=== PATIENT | male | born 1955 | race Caucasian/White ===

== ENCOUNTER → 2017-05-30 | Outpatient (CLI) | payer OTHER ==
[2017-05-30 12:11] LABS: BASOPHILS % (AUTO) 0.6 % (0.0-5.0); EOSINOPHILS % (AUTO) 1.1 % (0.0-8.0); HEMATOCRIT 50.2 % (42-54); LYMPHOCYTES % (AUTO) 24.6 % (21.0-51.0); MEAN CORPUSCULAR HEMOGLOBIN 30.8 pg (27.0-33.0); MEAN CORPUSCULAR HGB CONC 34.6 g/dL (32.0-36.0); MONOCYTES % (AUTO) 7.4 % (3.0-13.0); NEUTROPHILS % (AUTO) 66.3 % (40.0-77.0); NUCLEATED RED BLOOD CELLS 0.1 % (0.0-0.19); PLATELET COUNT (AUTO) 194 K/uL (130-400); RED BLOOD CELL COUNT(AUTO) 5.64 MIL/uL (4.50-6.20); RED CELL DISTRIBUTION WIDTH 14.1 % (11.0-15.5); WHITE BLOOD COUNT (AUTO) 11.6 K/uL (4.8-10.8)
[2017-05-30 12:31] LABS: ALBUMIN 4.2 g/dL (3.5-5.0); BILIRUBIN,TOTAL 0.8 mg/dL (0.2-1.0); CREATININE 0.9 mg/dL (0.5-1.5); TOTAL PROTEIN, SERUM 5.8 g/dL (6.0-8.3)
== END | disposition home or self-care (01) ==
LOC: LAB 10:00
PROVIDERS: ATTEND Internal Medicine
DX: I12.9 Hypertensive chronic kidney disease with stage 1 through stage 4 chronic kidney disease, or unspecified chronic kidney disease (principal); N18.2 Chronic kidney disease, stage 2 (mild); E78.2 Mixed hyperlipidemia
CPT/HCPCS: 36415; 80053; 80061; 85025

== ENCOUNTER → 2017-07-27 | Outpatient (CLI) | payer OTHER | END | disposition home or self-care (01) | LOC: LAB 08:52 | PROVIDERS: ATTEND Internal Medicine | DX: Z12.11 Encounter for screening for malignant neoplasm of colon (principal); I12.9 Hypertensive chronic kidney disease with stage 1 through stage 4 chronic kidney disease, or unspecified chronic kidney disease; N18.2 Chronic kidney disease, stage 2 (mild) | CPT/HCPCS: 36415; 82043; 86787 ==

== ENCOUNTER → 2017-10-26 | Outpatient (CLI) | payer OTHER ==
[~2017-10-26] MED LIST: ASPI-555 PO; CIALIS PO; CLOP75TA14 PO; FINA1TAB13 PO; HYDR25TA PO; LEVO500T2 PO; LOSA100T20 PO; METO25 PO; NICODERM PATCH TD; ROSU40TA20 PO; TRAM50TA4 PO
== END | disposition home or self-care (01) ==
LOC: OIH 10:00
PROVIDERS: ATTEND Internal Medicine
DX: Z13.6 Encounter for screening for cardiovascular disorders (principal); J84.10 Pulmonary fibrosis, unspecified; K44.9 Diaphragmatic hernia without obstruction or gangrene
CPT/HCPCS: 75571

== ENCOUNTER → 2017-11-29 | Outpatient (CLI) | payer OTHER ==
[~2017-11-29] MED LIST changes: -LEVO500T2 PO; -METO25 PO; -TRAM50TA4 PO
[2017-11-29 09:10] LABS: BASOPHILS % (AUTO) 0.6 % (0.0-5.0); EOSINOPHILS % (AUTO) 2.1 % (0.0-8.0); HEMATOCRIT 47.8 % (42-54); LYMPHOCYTES % (AUTO) 27.4 % (21.0-51.0); MEAN CORPUSCULAR HGB CONC 33.6 g/dL (32.0-36.0); MEAN CORPUSCULAR VOLUME 92.2 fL (79-99); MONOCYTES % (AUTO) 8.1 % (3.0-13.0); NEUTROPHILS % (AUTO) 61.8 % (40.0-77.0); NUCLEATED RED BLOOD CELLS 0.1 % (0.0-0.19); PLATELET COUNT (AUTO) 142 K/uL (130-400); RED BLOOD CELL COUNT(AUTO) 5.18 MIL/uL (4.50-6.20); WHITE BLOOD COUNT (AUTO) 9.4 K/uL (4.8-10.8)
[2017-11-29 09:22] LABS: BILIRUBIN,TOTAL 0.5 mg/dL (0.2-1.0); CREATININE 0.8 mg/dL (0.5-1.5); POTASSIUM 3.9 mmol/L (3.5-5.1); TOTAL PROTEIN, SERUM 7.3 g/dL (6.0-8.3)
== END | disposition home or self-care (01) ==
LOC: LAB 08:29
PROVIDERS: ATTEND Internal Medicine
DX: I12.9 Hypertensive chronic kidney disease with stage 1 through stage 4 chronic kidney disease, or unspecified chronic kidney disease (principal); N18.2 Chronic kidney disease, stage 2 (mild); E78.2 Mixed hyperlipidemia; N40.0 Benign prostatic hyperplasia without lower urinary tract symptoms
CPT/HCPCS: 36415; 80053; 80061; 84153; 85025

== ENCOUNTER 2017-12-07 05:53 | Day surgery (SDC) | payer OTHER ==
[2017-12-02 14:13] VITALS: BP 149/74
[2017-12-02 14:13] LABS: BASOPHILS % (AUTO) 0.9 % (0.0-5.0); EOSINOPHILS % (AUTO) 3.1 % (0.0-8.0); HEMATOCRIT 46.7 % (42-54); LYMPHOCYTES % (AUTO) 35.5 % (21.0-51.0); MEAN CORPUSCULAR HEMOGLOBIN 30.6 pg (27.0-33.0); MEAN CORPUSCULAR HGB CONC 33.3 g/dL (32.0-36.0); MEAN CORPUSCULAR VOLUME 91.8 fL (79-99); MONOCYTES % (AUTO) 8.8 % (3.0-13.0); NEUTROPHILS % (AUTO) 51.7 % (40.0-77.0); NUCLEATED RED BLOOD CELLS 0.1 % (0.0-0.19); PLATELET COUNT (AUTO) 147 K/uL (130-400); RED BLOOD CELL COUNT(AUTO) 5.09 MIL/uL (4.50-6.20); RED CELL DISTRIBUTION WIDTH 12.8 % (11.0-15.5)
[2017-12-02 14:16] LABS: CREATININE 0.9 mg/dL (0.5-1.5); POTASSIUM 3.5 mmol/L (3.5-5.1)
[2017-12-02 14:18] LABS: APPEARANCE,URINE Clear (CLEAR); BILIRUBIN,URINE Negative (NEGATIVE); COLOR,URINE Yellow (YELLOW); GLUCOSE, URINE (UA) Negative (NEGATIVE); KETONES,URINE Negative (NEGATIVE); LEUKOCYTE ESTERASE ,URINE Negative (NEGATIVE); NITRATE,URINE Negative (NEGATIVE); OCCULT BLOOD,URINE Small (NEGATIVE); PROTEIN,URINE Negative (NEGATIVE)
[2017-12-02 14:25] LABS: INR 0.99 (0.85-1.15); PARTIAL THROMBOPLASTIN TIME 29.6 SEC (26.3-35.5); PROTHROMBIN TIME 10.4 SEC (9.6-11.6)
[2017-12-02 14:50] LABS: BACTERIA,URINE Few /HPF (None Seen); SQUAMOUS EPITHELIAL CELL,UR None Seen /HPF (0-2); WBC,URINE 0-1 /HPF (0-1)
[~2017-12-07] VITALS: Ht 174 cm; Wt 85.3 kg
[2017-12-07] VITALS (9 sets, daily range): BP systolic 134–151; BP diastolic 66–81
[~2017-12-07 05:53] MED LIST changes: -NICODERM PATCH TD
[2017-12-07] MEDS ORDERED: NICODERM PATCH TD (07:07)
[2017-12-07] MEDS ORDERED: NITROGLYCERIN 5 MG/ML 10 ML VIAL IV ONE (07:13)
[2017-12-07] MEDS ORDERED: LIDOCAINE HCL-MPF 2% 5ML VIAL ONE ×2 (07:13→07:45)
[2017-12-07] MEDS ORDERED: IOHEXOL 350 MG/ML 100ML INFUS..BTL IV ONE ×2 (07:13→07:53)
[2017-12-07] MEDS ORDERED: IOHEXOL-350 50ML VIAL IV ONE (07:13)
[2017-12-07] MEDS ORDERED: BIVALIRUDIN 250 MG/VIAL IV ONE (07:53)
[2017-12-07] MEDS ORDERED: SODIUM CHLORIDE 0.9% 1000ML 1,000 ML IV SCH ×2 (08:00→08:31)
[2017-12-07] MEDS ORDERED: LABETALOL HCL 5 MG/ML 20ML VIAL IV ONE (08:21)
[2017-12-07] MEDS ORDERED: GLUCAGON 1MG KIT 1 MG ML IM PRN (08:45)
[2017-12-07] MEDS ORDERED: NITROGLYCERIN 0.4 MG SL TAB SL PRN (08:45)
[2017-12-07] MEDS ORDERED: DEXTROSE 50%-WATER 50 ML DISP.SYRIN IV PRN (08:45)
== END 2017-12-07 13:07 | disposition home or self-care (01) ==
LOC: DAH 05:53
PROVIDERS: ATTEND Internal Medicine Cardiovascular Disease
DX: I25.118 Atherosclerotic heart disease of native coronary artery with other forms of angina pectoris (principal); I13.0 Hypertensive heart and chronic kidney disease with heart failure and stage 1 through stage 4 chronic kidney disease, or unspecified chronic kidney disease; N18.2 Chronic kidney disease, stage 2 (mild); I50.9 Heart failure, unspecified; E78.5 Hyperlipidemia, unspecified; F15.90 Other stimulant use, unspecified, uncomplicated; F17.210 Nicotine dependence, cigarettes, uncomplicated; Z79.82 Long term (current) use of aspirin; Z79.899 Other long term (current) drug therapy; Z86.73 Personal history of transient ischemic attack (TIA), and cerebral infarction without residual deficits; Z72.89 Other problems related to lifestyle; Z82.49 Family history of ischemic heart disease and other diseases of the circulatory system
CPT/HCPCS: 36415; 71045; 80048; 81001; 85025; 85610; 85730; 93005; 93458; A4606; C1894 ×2; J1644; J3490 ×4; J7030; Q9965 ×2; Q9967 ×3; 36215; 75710; J0583

== ENCOUNTER 2017-12-15 13:00 | Inpatient (IN) | payer OTHER ==
[~2017-12-15] VITALS: Ht 167.6 cm; Wt 84.5 kg
[2017-12-15 12:56] VITALS: BP 159/81
[~2017-12-15 13:00] MED LIST changes: +NICODERM PATCH TD
[2017-12-15 13:03] LABS: BASOPHILS % (AUTO) 1.3 % (0.0-5.0); EOSINOPHILS % (AUTO) 2.7 % (0.0-8.0); HEMATOCRIT 43.8 % (42-54); LYMPHOCYTES % (AUTO) 31.1 % (21.0-51.0); MEAN CORPUSCULAR HEMOGLOBIN 32.1 pg (27.0-33.0); MEAN CORPUSCULAR VOLUME 91.5 fL (79-99); MONOCYTES % (AUTO) 6.4 % (3.0-13.0); NEUTROPHILS % (AUTO) 58.5 % (40.0-77.0); PLATELET COUNT (AUTO) 175 K/uL (130-400); RED BLOOD CELL COUNT(AUTO) 4.79 MIL/uL (4.50-6.20); WHITE BLOOD COUNT (AUTO) 8.8 K/uL (4.8-10.8)
[2017-12-15 13:14] LABS: CREATININE 0.9 mg/dL (0.5-1.5); POTASSIUM 3.6 mmol/L (3.5-5.1)
[2017-12-15 13:22] LABS: INR 0.98 (0.85-1.15); PARTIAL THROMBOPLASTIN TIME 29.1 SEC (26.3-35.5); PROTHROMBIN TIME 10.3 SEC (9.6-11.6)
[2017-12-15 13:24] LABS: HEMOGLOBIN A1C 5.5 % (4.0-6.0)
[2017-12-15 13:57] LABS: PLATELET FUNCTION ANALYSIS ADP 103 SEC (62-100); PLATELET FUNCTION ANALYSIS EPI > 192 SEC (55-192)
[2017-12-15 13:58] LABS: HEMATOCRIT 43.8 % (42-54); PLATELET COUNT (AUTO) 175 K/uL (130-400)
[2017-12-19] VITALS (17 sets, daily range): BP systolic 102–162; BP diastolic 48–77
[2017-12-19] MEDS ORDERED: CEFUROXIME SODIUM 1.5 GM VIAL IVP ONE (08:00)
[2017-12-19] MEDS ORDERED: MIDAZOLAM HCL 1 MG/ML 2ML VIAL ONE (09:37)
[2017-12-19] MEDS ORDERED: SODIUM CHLORIDE 0.9% 1000ML 1,000 ML IV ONE (09:41)
[2017-12-19] MEDS ORDERED: CEFUROXIME SODIUM 1.5 GM VIAL ONE (09:41)
[2017-12-19] MEDS ORDERED: OCTYL 2-CYANOACRYLATE 1 EACH TP ONE (10:10)
[2017-12-19] MEDS ORDERED: BACITRACIN 50,000 UNIT VIAL ONE (10:10)
[2017-12-19] MEDS ORDERED: PAPAVERINE HCL 30 MG/ML 2ML VIAL ONE (10:10)
[2017-12-19] MEDS ORDERED: SODIUM BICARB 50MEQ 50ML VIAL ONE ×2 (10:17→10:32)
[2017-12-19] MEDS ORDERED: AMIODARONE HCL 50 MG/ML 3 ML VIAL ONE (10:17)
[2017-12-19] MEDS ORDERED: POTASSIUM CHLORIDE 20MEQ/100ML 200 ML IV ONE (10:17)
[2017-12-19] MEDS ORDERED: NITROGLYCERIN 50 MG/D5% WATER 1 BOT ONE (10:18)
[2017-12-19] MEDS ORDERED: LIDOCAINE PF 2% 5ML ABBOJECT ONE (10:31)
[2017-12-19] MEDS ORDERED: ESMOLOL HCL 10 MG/ML 10 ML VIAL ONE (10:31)
[2017-12-19] MEDS ORDERED: HEPARIN SODIUM 1000UNIT/ML 10ML VIAL ONE (10:31)
[2017-12-19] MEDS ORDERED: FENTANYL CITRATE PF 50 MCG/1 ML 20ML VIAL IJ ONE (10:32)
[2017-12-19] MEDS ORDERED: EPINEPHRINE 1 MG/ML AMPULE ONE (10:32)
[2017-12-19] MEDS ORDERED: MIDAZOLAM HCL 1 MG/ML 5ML VIAL ONE (10:32)
[2017-12-19] MEDS ORDERED: PROPOFOL 10 MG/ML 20ML VIAL IV ONE (10:32)
[2017-12-19] MEDS ORDERED: NOREPINEPHRINE BITARTRATE 1 MG/1 ML ML IV ONE (10:32)
[2017-12-19] MEDS ORDERED: AMINOCAPROIC ACID 250 MG/ML 20 ML VIAL IV ONE (10:32)
[2017-12-19] MEDS ORDERED: KETAMINE 50MG/ML SYRINGE 50 MG/ML DISP.SYRIN IV ONE (10:36)
[2017-12-19] MEDS ORDERED: ROCURONIUM 10MG/1ML SYR 10 MG/ML ML ONE (10:45)
[2017-12-19] MEDS ORDERED: THROMBIN-JMI 5000 UNIT/VIAL TP ONE (10:57)
[2017-12-19 11:24] LABS: ABG BASE EXCESS 1.8 mmol/L (-2.0-3.0); ABG HCO3 26.6 mmol/L (21.0-28.0); ABG OXYGEN SATURATION 99.3 % (95.0-99.0); ABG PCO2 43 mmHg (35-48)
[2017-12-19] MEDS ORDERED: GLYCOPYRROLATE 1 MG/5 ML SYRINGE ONE (11:53)
[2017-12-19] MEDS ORDERED: HEPARIN SODIUM 1000UNIT/ML 10ML VIAL IV ONE (12:00)
[2017-12-19] MEDS ORDERED: CALCIUM CHLORIDE 100 MG/ML 10 ML SYG IVP ONE (12:00)
[2017-12-19] MEDS ORDERED: SODIUM CHLORIDE 0.9% 500ML 500 ML IV SCH (12:58)
[2017-12-19] MEDS ORDERED: SODIUM CHLORIDE 0.9% 10 ML VIAL IVP PRN (13:00)
[2017-12-19] MEDS ORDERED: PROPOFOL 1000 MG/100 ML 100 ML IV PRN (13:00)
[2017-12-19] MEDS ORDERED: INSULIN REGULAR, HUMAN 3ML 100 UNIT in SODIUM CHLORIDE 0.9% 99 ML IV SCH ×2 (13:00)
[2017-12-19] MEDS ORDERED: NOREPINEPHRINE 4MG/NS 250ML 250 ML IV PRN (13:00)
[2017-12-19] MEDS ORDERED: DEXTROSE 50%-WATER 50 ML DISP.SYRIN IV PRN (13:00)
[2017-12-19] MEDS ORDERED: POTASSIUM PHOS 15 mMOL+NS250ML 250 ML IV PRN (13:00)
[2017-12-19] MEDS ORDERED: MORPHINE SULFATE 4 MG/1ML SYG IV PRN (13:00)
[2017-12-19] MEDS ORDERED: NITROGLYCERIN 50 MG/D5% WATER 250 BOT IV SCH (13:00)
[2017-12-19] MEDS ORDERED: ACETAMINOPHEN 325 MG TAB PO PRN (13:00)
[2017-12-19] MEDS ORDERED: ROPIVACAINE 0.2% 2MG/ML 100ML VIAL IJ ONE (13:00)
[2017-12-19] MEDS ORDERED: EPINEPHRINE 8 MG in SODIUM CHLORIDE 0.9% 250 ML IV PRN (13:00)
[2017-12-19] MEDS ORDERED: CALCIUM GLUCONATE 1 GM in SODIUM CHLORIDE 0.9% 50 ML IV PRN (13:00)
[2017-12-19] MEDS ORDERED: GLUCAGON 1MG KIT 1 MG ML IM PRN (13:00)
[2017-12-19] MEDS ORDERED: TRAMADOL HCL 50 MG TABLET PO PRN ×2 (13:00)
[2017-12-19] MEDS ORDERED: ACETAMINOPHEN 650 MG SUPPOSITORY RC PRN (13:00)
[2017-12-19] MEDS ORDERED: MORPHINE SULFATE 2 MG/ML 1ML SYG IV PRN (13:00)
[2017-12-19] MEDS ORDERED: AMINOCAPROIC ACID 15,000 MG in SODIUM CHLORIDE 0.9% 250 ML IV SCH (13:00)
[2017-12-19] MEDS ORDERED: ONDANSETRON HCL 4 MG/2 ML VIAL IV PRN (13:00)
[2017-12-19] MEDS ORDERED: ALBUMIN (HUMAN) 5% 250 ML IV PRN (13:00)
[2017-12-19] MEDS ORDERED: SODIUM CHLORIDE 0.9% 250 ML IV PRN (13:00)
[2017-12-19] MEDS ORDERED: SODIUM CHLORIDE 0.9% 1000ML 1,000 ML IV SCH (13:00)
[2017-12-19 13:20] LABS: ABG BASE EXCESS -1.8 mmol/L (-2.0-3.0); ABG HCO3 23.4 mmol/L (21.0-28.0); ABG OXYGEN SATURATION 99.3 % (95.0-99.0); ABG PCO2 41 mmHg (35-48)
[2017-12-19] MEDS: AMBU PUMP 1 EACH EACH MISC ONE ×2 (13:34→14:31)
[2017-12-19 14:14] LABS: ABG BASE EXCESS -2.1 mmol/L (-2.0-3.0); ABG HCO3 23.6 mmol/L (21.0-28.0); ABG OXYGEN SATURATION 98.5 % (95.0-99.0); ABG PCO2 44 mmHg (35-48)
[2017-12-19 15:12] LABS: ABG BASE EXCESS -4.4 mmol/L (-2.0-3.0); ABG HCO3 21.2 mmol/L (21.0-28.0); ABG OXYGEN SATURATION 98.4 % (95.0-99.0); ABG PCO2 41 mmHg (35-48)
[2017-12-19 15:19] LABS: HEMATOCRIT 43.1 % (42-54); MEAN CORPUSCULAR HEMOGLOBIN 31.4 pg (27.0-33.0); MEAN CORPUSCULAR HGB CONC 34.3 g/dL (32.0-36.0); MEAN CORPUSCULAR VOLUME 91.5 fL (79-99); PLATELET COUNT (AUTO) 168 K/uL (130-400); RED BLOOD CELL COUNT(AUTO) 4.71 MIL/uL (4.50-6.20); RED CELL DISTRIBUTION WIDTH 12.9 % (11.0-15.5); WHITE BLOOD COUNT (AUTO) 26.2 K/uL (4.8-10.8)
[2017-12-19] MEDS: POTASSIUM CHLORIDE 20MEQ/100ML 100 ML IV PRN ×4 (15:21→23:49)
[2017-12-19] MEDS: SODIUM BICARB 50MEQ 50ML VIAL IV PRN ×2 (15:22→15:43)
[2017-12-19] MEDS: PHARMACY COMMUNICATION MISC SCH ×2 (15:25→19:48)
[2017-12-19 15:33] LABS: CREATININE 0.9 mg/dL (0.5-1.5); MAGNESIUM 1.5 mg/dL (1.80-2.40); PHOSPHORUS 4.3 mg/dL (2.5-4.9); POTASSIUM 3.1 mmol/L (3.5-5.1)
[2017-12-19] MEDS: MAGNESIUM 2GM PREMIX 50ML 50 ML IV PRN (15:52)
[2017-12-19 17:08] LABS: ABG BASE EXCESS 0.3 mmol/L (-2.0-3.0); ABG HCO3 25.6 mmol/L (21.0-28.0); ABG OXYGEN SATURATION 95.4 % (95.0-99.0); ABG PCO2 44 mmHg (35-48)
[2017-12-19] MEDS ORDERED: PHARMACY COMMUNICATION MISC SCH (17:45)
[2017-12-19 18:11] LABS: ABG BASE EXCESS 1.1 mmol/L (-2.0-3.0); ABG HCO3 26.5 mmol/L (21.0-28.0); ABG OXYGEN SATURATION 96.9 % (95.0-99.0); ABG PCO2 45 mmHg (35-48)
[2017-12-19] MEDS: KETOROLAC TROMETHAMINE 30MG/ML IV SCH ×2 (18:41→23:47)
[2017-12-19 19:38] LABS: ABG BASE EXCESS 2.2 mmol/L (-2.0-3.0); ABG HCO3 27.2 mmol/L (21.0-28.0); ABG OXYGEN SATURATION 97.5 % (95.0-99.0); ABG PCO2 44 mmHg (35-48)
[2017-12-19] MEDS: CEFUROXIME SODIUM 1.5 GM VIAL IVP SCH (22:02)
[2017-12-19 22:32] LABS: CREATININE 0.9 mg/dL (0.5-1.5); MAGNESIUM 1.9 mg/dL (1.80-2.40); POTASSIUM 3.7 mmol/L (3.5-5.1)
[2017-12-20] VITALS (23 sets, daily range): BP systolic 94–146; BP diastolic 47–84
[2017-12-20] MEDS: MAGNESIUM 2GM PREMIX 50ML 50 ML IV PRN (00:30)
[2017-12-20 04:16] LABS: HEMATOCRIT 39.4 % (42-54); MEAN CORPUSCULAR HEMOGLOBIN 30.7 pg (27.0-33.0); MEAN CORPUSCULAR HGB CONC 33.8 g/dL (32.0-36.0); MEAN CORPUSCULAR VOLUME 90.6 fL (79-99); PLATELET COUNT (AUTO) 120 K/uL (130-400); RED BLOOD CELL COUNT(AUTO) 4.35 MIL/uL (4.50-6.20); WHITE BLOOD COUNT (AUTO) 18.5 K/uL (4.8-10.8)
[2017-12-20 04:27] LABS: CREATININE 0.8 mg/dL (0.5-1.5); MAGNESIUM 2.3 mg/dL (1.80-2.40); PHOSPHORUS 3.4 mg/dL (2.5-4.9); POTASSIUM 3.5 mmol/L (3.5-5.1)
[2017-12-20] MEDS: POTASSIUM CHLORIDE 20MEQ/100ML 100 ML IV PRN ×3 (04:34→05:59)
[2017-12-20 04:37] LABS: INR 0.98 (0.85-1.15); PARTIAL THROMBOPLASTIN TIME 29.2 SEC (26.3-35.5); PROTHROMBIN TIME 10.3 SEC (9.6-11.6)
[2017-12-20] MEDS: KETOROLAC TROMETHAMINE 30MG/ML IV SCH ×3 (05:14→18:37)
[2017-12-20] MEDS: NICOTINE 21 MG/ 24 HR PATCH TD SCH (08:07)
[2017-12-20] MEDS: ASPIRIN 81MG TAB.CHEW PO SCH (08:09)
[2017-12-20] MEDS: FINASTERIDE 1 MG PO SCH (08:17)
[2017-12-20] MEDS: CIALIS 5 MG PO SCH (08:17)
[2017-12-20] MEDS: Rosuvastatin Calcium 40 MG PO SCH (08:18)
[2017-12-20] MEDS: PHARMACY COMMUNICATION MISC SCH ×2 (08:30→14:00)
[2017-12-20] MEDS ORDERED: PANTOPRAZOLE 40 MG/VIAL IV SCH (09:00)
[2017-12-20] MEDS: CEFUROXIME SODIUM 1.5 GM VIAL IVP SCH ×2 (09:24→21:29)
[2017-12-20] MEDS ORDERED: METOPROLOL TARTRATE 25 MG TAB PO SCH (10:01)
[2017-12-20] MEDS: INSULIN HUMULIN R 100 UNIT/ML 3ML SQ SCH ×3 (11:15→21:00)
[2017-12-20] MEDS: METOPROLOL TARTRATE 25 MG TAB PO SCH (21:29)
[2017-12-20] MEDS: FUROSEMIDE 20 MG TABLET PO SCH (21:29)
[2017-12-21] VITALS (8 sets, daily range): BP systolic 100–131; BP diastolic 50–74
[2017-12-21] MEDS: KETOROLAC TROMETHAMINE 30MG/ML IV SCH (00:05)
[2017-12-21] MEDS: INSULIN HUMULIN R 100 UNIT/ML 3ML SQ SCH ×4 (05:36→20:45)
[2017-12-21] MEDS: FINASTERIDE 1 MG PO SCH (09:00)
[2017-12-21] MEDS: Rosuvastatin Calcium 40 MG PO SCH (09:00)
[2017-12-21] MEDS: CIALIS 5 MG PO SCH (09:00)
[2017-12-21] MEDS: NICOTINE 21 MG/ 24 HR PATCH TD SCH (09:00)
[2017-12-21] MEDS: PANTOPRAZOLE SODIUM 40 MG TABLET.DR PO SCH (09:15)
[2017-12-21] MEDS: METOPROLOL TARTRATE 25 MG TAB PO SCH ×2 (09:15→20:49)
[2017-12-21] MEDS: FUROSEMIDE 20 MG TABLET PO SCH ×2 (09:15→16:54)
[2017-12-21] MEDS: ASPIRIN 81MG TAB.CHEW PO SCH (09:15)
[2017-12-21] MEDS: CLOPIDOGREL BISULFATE 75 MG TAB PO SCH (16:54)
[2017-12-21] MEDS: LEVOFLOXACIN 500 MG TABLET PO SCH (17:53)
[2017-12-21 19:18] LABS: APPEARANCE,URINE Clear (CLEAR); BILIRUBIN,URINE Negative (NEGATIVE); COLOR,URINE Yellow (YELLOW); GLUCOSE, URINE (UA) Negative (NEGATIVE); KETONES,URINE Negative (NEGATIVE); LEUKOCYTE ESTERASE ,URINE Trace (NEGATIVE); NITRATE,URINE Negative (NEGATIVE); OCCULT BLOOD,URINE Moderate (NEGATIVE); PH,URINE 7.5 (5.0-8.0); PROTEIN,URINE Negative (NEGATIVE)
[2017-12-21 19:29] LABS: BACTERIA,URINE Rare /HPF (None Seen); SQUAMOUS EPITHELIAL CELL,UR Rare /HPF (0-2)
[2017-12-22 00:14] VITALS: BP 135/76
[2017-12-22 03:58] LABS: HEMATOCRIT 33.3 % (42-54); MEAN CORPUSCULAR HEMOGLOBIN 31.3 pg (27.0-33.0); MEAN CORPUSCULAR HGB CONC 34.5 g/dL (32.0-36.0); MEAN CORPUSCULAR VOLUME 90.8 fL (79-99); PLATELET COUNT (AUTO) 102 K/uL (130-400); RED BLOOD CELL COUNT(AUTO) 3.67 MIL/uL (4.50-6.20); WHITE BLOOD COUNT (AUTO) 13.5 K/uL (4.8-10.8)
[2017-12-22 04:14] LABS: CREATININE 0.9 mg/dL (0.5-1.5); POTASSIUM 3.4 mmol/L (3.5-5.1)
[2017-12-22 04:17] VITALS: BP 141/86
[2017-12-22] MEDS: INSULIN HUMULIN R 100 UNIT/ML 3ML SQ SCH ×4 (05:56→21:00)
[2017-12-22] MEDS ORDERED: LIDOCAINE HCL-MPF 1% 2ML VIAL IVP PRN (07:30)
[2017-12-22] MEDS ORDERED: POTASSIUM CHLORIDE 20 MEQ ERTAB PO PRN (07:30)
[2017-12-22] MEDS ORDERED: POTASSIUM CHLORIDE 20MEQ/100ML 100 ML IV PRN (07:30)
[2017-12-22] MEDS ORDERED: POTASSIUM CHLORIDE 10% ELIXIR 20 MEQ/15 ML UDCUP PO PRN (07:30)
[2017-12-22] MEDS ORDERED: PHARMACY COMMUNICATION MISC SCH (07:45)
[2017-12-22 08:00] VITALS: BP 120/77
[2017-12-22] MEDS: NICOTINE 21 MG/ 24 HR PATCH TD SCH (09:00)
[2017-12-22] MEDS: Rosuvastatin Calcium 40 MG PO SCH (09:00)
[2017-12-22] MEDS: FINASTERIDE 1 MG PO SCH (09:00)
[2017-12-22] MEDS: CIALIS 5 MG PO SCH (09:00)
[2017-12-22] MEDS: ASPIRIN 81MG TAB.CHEW PO SCH (09:17)
[2017-12-22] MEDS: FUROSEMIDE 20 MG TABLET PO SCH ×2 (09:17→17:12)
[2017-12-22] MEDS: CLOPIDOGREL BISULFATE 75 MG TAB PO SCH (09:18)
[2017-12-22] MEDS: PANTOPRAZOLE SODIUM 40 MG TABLET.DR PO SCH (09:18)
[2017-12-22] MEDS: METOPROLOL TARTRATE 25 MG TAB PO SCH ×2 (09:19→21:23)
[2017-12-22 11:00] VITALS: BP 109/66
[2017-12-22 16:00] VITALS: BP 135/70
[2017-12-22] MEDS: LEVOFLOXACIN 500 MG TABLET PO SCH (17:12)
[2017-12-22 19:56] VITALS: BP 128/77
[2017-12-22] MEDS: ENOXAPARIN SODIUM 30 MG/0.3 ML SQ SCH (21:30)
[2017-12-23 00:05] VITALS: BP 127/74
[2017-12-23 04:16] VITALS: BP 135/82
[2017-12-23] MEDS: INSULIN HUMULIN R 100 UNIT/ML 3ML SQ SCH (07:08)
[2017-12-23 08:16] VITALS: BP 119/83
[2017-12-23] MEDS: FINASTERIDE 1 MG PO SCH (09:00)
[2017-12-23] MEDS: ENOXAPARIN SODIUM 30 MG/0.3 ML SQ SCH ×2 (09:00→09:50)
[2017-12-23] MEDS: NICOTINE 21 MG/ 24 HR PATCH TD SCH (09:00)
[2017-12-23] MEDS: CLOPIDOGREL BISULFATE 75 MG TAB PO SCH (09:00)
[2017-12-23] MEDS: CIALIS 5 MG PO SCH (09:00)
[2017-12-23] MEDS: Rosuvastatin Calcium 40 MG PO SCH (09:00)
[2017-12-23] MEDS ORDERED: METO25 PO (09:39)
[2017-12-23] MEDS ORDERED: TRAM50TA4 PO (09:39)
[2017-12-23] MEDS ORDERED: LEVO500T2 PO (09:39)
[2017-12-23] MEDS: PANTOPRAZOLE SODIUM 40 MG TABLET.DR PO SCH (09:48)
[2017-12-23] MEDS: ASPIRIN 81MG TAB.CHEW PO SCH (09:49)
[2017-12-23] MEDS: METOPROLOL TARTRATE 25 MG TAB PO SCH (09:49)
[2017-12-23] MEDS: FUROSEMIDE 20 MG TABLET PO SCH (09:49)
== END 2017-12-23 11:40 | disposition home or self-care (01) | DRG 236 ==
LOC: EDSTATUS 12-16 10:30 → DAHIP 12-19 09:24 → 2CV 12-19 11:48 → 2CH 12-20 06:10 → 2AH 12-21 05:46
PROVIDERS: ADMIT Thoracic Surgery (Cardiothoracic Vascular Surgery); ATTEND Thoracic Surgery (Cardiothoracic Vascular Surgery)
PROC: 06BP4ZZ Excision of Right Saphenous Vein, Percutaneous Endoscopic Approach (ICD-10-PCS; 2017-12-19)
PROC: 0BH17EZ Insertion of Endotracheal Airway into Trachea, Via Natural or Artificial Opening (ICD-10-PCS; 2017-12-19)
PROC: 5A1935Z Respiratory Ventilation, Less than 24 Consecutive Hours (ICD-10-PCS; 2017-12-19)
PROC: 02100Z9 Bypass Coronary Artery, One Artery from Left Internal Mammary, Open Approach (ICD-10-PCS; principal; 2017-12-19 10:45)
PROC: 021109W Bypass Coronary Artery, Two Arteries from Aorta with Autologous Venous Tissue, Open Approach (ICD-10-PCS; 2017-12-19 10:45)
PROC: 06BQ4ZZ Excision of Left Saphenous Vein, Percutaneous Endoscopic Approach (ICD-10-PCS; 2017-12-19 10:45)
DX: I25.10 Atherosclerotic heart disease of native coronary artery without angina pectoris (principal); I10 Essential (primary) hypertension; E78.5 Hyperlipidemia, unspecified; D69.6 Thrombocytopenia, unspecified; F17.210 Nicotine dependence, cigarettes, uncomplicated; J44.9 Chronic obstructive pulmonary disease, unspecified; N40.0 Benign prostatic hyperplasia without lower urinary tract symptoms; Z79.82 Long term (current) use of aspirin; Z79.899 Other long term (current) drug therapy; Z86.73 Personal history of transient ischemic attack (TIA), and cerebral infarction without residual deficits; Z83.438 Family history of other disorder of lipoprotein metabolism and other lipidemia
CPT/HCPCS: 36415; 71045; 71046; 80048; 80061; 81001; 82435; 82803; 82947; 82948; 83036; 83605; 83735; 84100; 84132; 84295; 85018; 85025; 85027; 85347; 85576; 85610; 85730; 86850; 86900; 86901; 86922; 93005; 94002; 94010; 94150; 97039; A4218; A7048; C9113; J0171; J0282; J0610; J0697; J1644; J1650; J1815; J1885; J2001; J2250; J2440; J2704; J2795; J3010; J3475; J3480; J3490; J7030; J7040

== ENCOUNTER → 2018-02-03 | Outpatient (CLI) | payer OTHER ==
[~2018-02-03] MED LIST changes: +LEVO500T2 PO; -LOSA100T20 PO; +METO25 PO; +TRAM50TA4 PO
== END | disposition home or self-care (01) ==
LOC: LAB 11:17
PROVIDERS: ATTEND Internal Medicine Cardiovascular Disease
DX: I10 Essential (primary) hypertension (principal); R00.0 Tachycardia, unspecified; Z72.89 Other problems related to lifestyle
CPT/HCPCS: 93005

== ENCOUNTER 2018-05-28 10:39 | Emergency (ER) | payer OTHER ==
[2018-05-28] MEDS ORDERED: IPRATROPIUM/ALBUTEROL SULFATE 3 ML SOLUTION IH ONE (11:19)
[2018-05-28 11:24] LABS: BASOPHILS % (AUTO) 0.3 % (0.0-5.0); EOSINOPHILS % (AUTO) 0.1 % (0.0-8.0); HEMATOCRIT 47.6 % (42-54); LYMPHOCYTES % (AUTO) 12.3 % (21.0-51.0); MEAN CORPUSCULAR HEMOGLOBIN 28.3 pg (27.0-33.0); MEAN CORPUSCULAR HGB CONC 33.9 g/dL (32.0-36.0); MEAN CORPUSCULAR VOLUME 83.4 fL (79-99); NEUTROPHILS % (AUTO) 79.3 % (40.0-77.0); NUCLEATED RED BLOOD CELLS 0.1 % (0.0-0.19); PLATELET COUNT (AUTO) 158 K/uL (130-400); RED BLOOD CELL COUNT(AUTO) 5.71 MIL/uL (4.50-6.20); RED CELL DISTRIBUTION WIDTH 15.9 % (11.0-15.5); WHITE BLOOD COUNT (AUTO) 14.3 K/uL (4.8-10.8)
[2018-05-28 11:28] LABS: CREATININE 0.9 mg/dL (0.5-1.5); POTASSIUM 3.4 mmol/L (3.5-5.1)
[2018-05-28 11:34] LABS: ALBUMIN 3.9 g/dL (3.5-5.0); BILIRUBIN,TOTAL 1.7 mg/dL (0.2-1.0); TOTAL PROTEIN, SERUM 7.2 g/dL (6.0-8.3)
[2018-05-28 11:44] LABS: RAPID GROUP A STREP NEGATIVE (NEGATIVE)
[2018-05-28 12:03] LABS: INR 1.1 (0.85-1.15); PARTIAL THROMBOPLASTIN TIME 32.7 SEC (26.3-35.5); PROTHROMBIN TIME 11.5 SEC (9.6-11.6)
[2018-05-28 12:43] LABS: APPEARANCE,URINE Clear (CLEAR); BILIRUBIN,URINE Negative (NEGATIVE); COLOR,URINE Yellow (YELLOW); GLUCOSE, URINE (UA) Negative (NEGATIVE); KETONES,URINE Negative (NEGATIVE); LEUKOCYTE ESTERASE ,URINE Negative (NEGATIVE); NITRATE,URINE Negative (NEGATIVE); OCCULT BLOOD,URINE Moderate (NEGATIVE); PH,URINE 7.5 (5.0-8.0); PROTEIN,URINE Trace (NEGATIVE)
[2018-05-28 13:19] LABS: BACTERIA,URINE Rare /HPF (None Seen); SQUAMOUS EPITHELIAL CELL,UR Rare /HPF (0-2); WBC,URINE None Seen /HPF (0-1)
== END 2018-05-28 13:33 | disposition home or self-care (01) ==
LOC: EDH 10:39
DX: J20.9 Acute bronchitis, unspecified (principal); J01.10 Acute frontal sinusitis, unspecified; I25.10 Atherosclerotic heart disease of native coronary artery without angina pectoris; I10 Essential (primary) hypertension; E78.5 Hyperlipidemia, unspecified; Z87.891 Personal history of nicotine dependence
CPT/HCPCS: 36415; 71046; 80053; 81001; 83605; 84484; 85025; 85610; 85730; 87040; 87804; 87880; 93005

== ENCOUNTER → 2018-06-13 | Outpatient (CLI) | payer OTHER ==
[2018-06-13 08:34] LABS: EOSINOPHILS % (AUTO) 1.3 % (0.0-8.0); HEMATOCRIT 44.7 % (42-54); LYMPHOCYTES % (AUTO) 34.3 % (21.0-51.0); MEAN CORPUSCULAR HEMOGLOBIN 27.7 pg (27.0-33.0); MEAN CORPUSCULAR VOLUME 84.1 fL (79-99); MONOCYTES % (AUTO) 6.7 % (3.0-13.0); NEUTROPHILS % (AUTO) 56.7 % (40.0-77.0); PLATELET COUNT (AUTO) 286 K/uL (130-400); RED BLOOD CELL COUNT(AUTO) 5.32 MIL/uL (4.50-6.20); RED CELL DISTRIBUTION WIDTH 15.3 % (11.0-15.5); WHITE BLOOD COUNT (AUTO) 7.9 K/uL (4.8-10.8)
[2018-06-13 08:42] LABS: POTASSIUM 3.7 mmol/L (3.5-5.1)
[2018-06-13 08:53] LABS: ALBUMIN 3.7 g/dL (3.5-5.0); CREATININE 0.9 mg/dL (0.5-1.5)
[2018-06-13 09:07] LABS: BILIRUBIN,TOTAL 0.5 mg/dL (0.2-1.0); TOTAL PROTEIN, SERUM 7.3 g/dL (6.0-8.3)
== END | disposition home or self-care (01) ==
LOC: LAB 08:09
PROVIDERS: ATTEND Internal Medicine
DX: Z12.11 Encounter for screening for malignant neoplasm of colon (principal); I12.9 Hypertensive chronic kidney disease with stage 1 through stage 4 chronic kidney disease, or unspecified chronic kidney disease; N18.2 Chronic kidney disease, stage 2 (mild); M25.512 Pain in left shoulder; E78.2 Mixed hyperlipidemia; M54.2 Cervicalgia
CPT/HCPCS: 36415; 80053; 80061; 82043; 82570; 85025

== ENCOUNTER → 2018-07-26 | Outpatient (CLI) | payer OTHER | END | disposition home or self-care (01) | LOC: RAH 14:00 | PROVIDERS: ATTEND Thoracic Surgery (Cardiothoracic Vascular Surgery) | DX: T84.9XXA Unspecified complication of internal orthopedic prosthetic device, implant and graft, initial encounter (principal); Y93.89 Activity, other specified; Y92.89 Other specified places as the place of occurrence of the external cause; Y99.8 Other external cause status | CPT/HCPCS: 71046 ==

== ENCOUNTER 2018-08-28 06:47 | Day surgery (SDC) | payer OTHER ==
[2018-08-23 12:40] LABS: BASOPHILS % (AUTO) 0.8 % (0.0-5.0); EOSINOPHILS % (AUTO) 1.4 % (0.0-8.0); HEMATOCRIT 47.2 % (42-54); MEAN CORPUSCULAR HEMOGLOBIN 30.5 pg (27.0-33.0); MEAN CORPUSCULAR HGB CONC 34.3 g/dL (32.0-36.0); MEAN CORPUSCULAR VOLUME 88.9 fL (79-99); MONOCYTES % (AUTO) 7.6 % (3.0-13.0); NEUTROPHILS % (AUTO) 58.2 % (40.0-77.0); PLATELET COUNT (AUTO) 160 K/uL (130-400); RED BLOOD CELL COUNT(AUTO) 5.31 MIL/uL (4.50-6.20); RED CELL DISTRIBUTION WIDTH 14.7 % (11.0-15.5); WHITE BLOOD COUNT (AUTO) 8.1 K/uL (4.8-10.8)
[2018-08-23 12:49] VITALS: BP 124/80
[2018-08-23 12:49] LABS: HEMOGLOBIN A1C 5.6 % (4.0-6.0)
[2018-08-23 12:56] LABS: INR 1.04 (0.85-1.15); PARTIAL THROMBOPLASTIN TIME 28.5 SEC (26.3-35.5); PROTHROMBIN TIME 10.9 SEC (9.6-11.6)
[2018-08-23 12:57] LABS: ALBUMIN 4.3 g/dL (3.5-5.0); BILIRUBIN,TOTAL 0.6 mg/dL (0.2-1.0); CREATININE 0.9 mg/dL (0.5-1.5); POTASSIUM 3.4 mmol/L (3.5-5.1); TOTAL PROTEIN, SERUM 7.3 g/dL (6.0-8.3)
--- NOTE | 2018-08-23 13:30 | NUR ---
CALLED ABDIAS BEE RN OF DR. HENSON TO NOTIFY THAT PT IS TAKING CLOPIDOGREL AND ASPIRIN. PER DR. HENSON , ABDIAS BEE RN STATED FOR PT TO TAKE BOTH MEDICATION TODAY AND TOMORROW AND STOP OF 08/25/2018. PATIENT VERBALIZED UNDERSTANDING. PER PT HE WILL E-MAIL LIST OF HIS MEDICATIONS STATING HE SAYS HE IS STILL PENDING 1 MORE MEDICATION TO ADD.
[2018-08-23 13:34] LABS: PLATELET FUNCTION ANALYSIS ADP 176 SEC (62-100); PLATELET FUNCTION ANALYSIS EPI > 192 SEC (55-192)
[2018-08-23 13:35] LABS: HEMATOCRIT 47.2 % (42-54); PLATELET COUNT (AUTO) 160 K/uL (130-400)
--- NOTE | 2018-08-25 17:17 | NUR ---
LABS ABNORMAL LABS REPORTED TO DR. HENSON, MESSAGE LEFT WITH ABDIAS MOSS. PER ABDIAS PER DR. HENSON OK TO PROCEED WITH SX, NO FURTHER ORDERS GIVEN
[2018-08-28] VITALS (13 sets, daily range): BP systolic 94–138; BP diastolic 51–87
[~2018-08-28] VITALS: Ht 175.3 cm; Wt 89.1 kg
[~2018-08-28 06:47] MED LIST changes: +CEFUROXIME SODIUM 1.5 GM VIAL IVP SCH; +EZET10TA48 PO; -LEVO500T2 PO; -METO25 PO; -NICODERM PATCH TD; -TRAM50TA4 PO
[2018-08-28] MEDS ORDERED: FENTANYL CITRATE PF 50 MCG/1 ML 2ML VIAL ONE ×2 (07:18→11:02)
[2018-08-28] MEDS ORDERED: LIDOCAINE PF 2% 5ML ABBOJECT ONE (07:18)
[2018-08-28] MEDS ORDERED: LIDOCAINE HCL 4% LTA SOL 4 ML VIAL ONE (07:18)
[2018-08-28] MEDS ORDERED: PROPOFOL 10 MG/ML 20ML VIAL IV ONE (07:18)
[2018-08-28] MEDS ORDERED: ONDANSETRON HCL 4 MG/2 ML VIAL ONE (07:18)
[2018-08-28] MEDS ORDERED: DEXAMETHASONE SOD PHOSPHATE 4 MG/ML 1ML VIAL ONE (07:18)
[2018-08-28] MEDS ORDERED: MIDAZOLAM HCL 1 MG/ML 2ML VIAL ONE (07:18)
[2018-08-28] MEDS ORDERED: SUCCINYLCHOLINE 200MG/10ML SYR ONE ×2 (07:24→09:25)
[2018-08-28] MEDS ORDERED: ROCURONIUM 10MG/1ML SYR 10 MG/ML ML ONE (07:24)
[2018-08-28] MEDS ORDERED: SODIUM CHLORIDE 0.9% 1000ML 1,000 ML IV ONE (07:50)
[2018-08-28] MEDS ORDERED: CEFUROXIME SODIUM 1.5 GM VIAL ONE (07:50)
[2018-08-28] MEDS ORDERED: SUCCINYLCHOLINE CHLORIDE 20 MG/ML 10 ML VIAL ONE (09:27)
[2018-08-28] MEDS ORDERED: BACITRACIN 50,000 UNIT VIAL ONE (10:04)
[2018-08-28] MEDS ORDERED: GLYCOPYRROLATE 1 MG/5 ML SYRINGE ONE (10:05)
[2018-08-28] MEDS ORDERED: BUPIVACAINE/PF 0.5% 30ML VIAL ONE (10:39)
[2018-08-28] MEDS ORDERED: NEOSTIGMINE 5MG/5ML SYR IV ONE (10:50)
[2018-08-28] MEDS ORDERED: MEPERIDINE-PF 25 MG/ML SYG ONE (11:23)
[2018-08-28] MEDS ORDERED: KETOROLAC TROMETHAMINE 30MG/ML ONE (11:39)
--- NOTE | 2018-08-28 12:13 | NUR ---
POST-PROCEDURE RECEIVED FROM RR VIA STRETCHER S/P STERNAL WIRE REMOVAL. AWAKE IN NO ACUTE DISTRESS. CONNECTED TO CONTINUOUS CARDIOPULMONARY MONITORING. DENIES PAIN. DRESSING TO MIDLINE ANTERIOR CHEST CLEAN, DRY, AND INTACT. STRETCHER IN LOWEST POSITION, CALL LIGHT W/IN REACH, SIDE RAILS UP X2.
--- NOTE | 2018-08-28 12:45 | NUR ---
ACTIVITY UP TO EDGE OF BED. TOLERATED W/O COMPLAINTS. DENIES NAUSEA/DIZZINESS.
[2018-08-28] MEDS ORDERED: TRAM50TA4 PO ×2 (12:59)
--- NOTE | 2018-08-28 13:10 | NUR ---
DISCHARGE DAY PT DISCHARGE INSTRUCTION SHEET, MED REC, AND PT EDUCATION REVIEWED WITH PT. PT EDUCATED ON NEW MEDICATION TO BE STARTED TRAMADOL PO [id number] NEEDED FOR PAIN AND TO KEEP DRESSING CLEAN, DRY, AND INTACT UNTIL TOMORROW. PT VERBALIZED UNDERSTANDING. OPPORTUNITY GIVEN TO ASK QUESTIONS. QUESTIONS ADDRESSED.
--- NOTE | 2018-08-28 13:13 | NUR ---
DISCHARGE DISCHARGED VIA W/C. AWAKE IN NO ACUTE DISTRESS.
== END 2018-08-28 13:13 | disposition home or self-care (01) ==
LOC: DAH 06:47
PROVIDERS: ATTEND Thoracic Surgery (Cardiothoracic Vascular Surgery)
DX: T84.9XXA Unspecified complication of internal orthopedic prosthetic device, implant and graft, initial encounter (principal); Z79.899 Other long term (current) drug therapy; I45.19 Other right bundle-branch block; Z79.01 Long term (current) use of anticoagulants; I25.10 Atherosclerotic heart disease of native coronary artery without angina pectoris; I73.9 Peripheral vascular disease, unspecified; Z86.73 Personal history of transient ischemic attack (TIA), and cerebral infarction without residual deficits
CPT/HCPCS: 20680; 36415; 71045; 80053; 83036; 85025; 85576 ×2; 85610; 85730; 88300; 93005; A4930; A6219; C1713 ×2; J0330 ×3; J0697; J1100; J1885; J2001; J2175; J2250; J2405; J2704; J2710; J3010 ×2; J3490 ×2; J7030

== ENCOUNTER → 2018-09-04 | Outpatient (CLI) | payer OTHER ==
[~2018-09-04] MED LIST changes: -CEFUROXIME SODIUM 1.5 GM VIAL IVP SCH; +TRAM50TA4 PO
[2018-09-04 11:27] LABS: BASOPHILS % (AUTO) 0.9 % (0.0-5.0); HEMATOCRIT 45.9 % (42-54); LYMPHOCYTES % (AUTO) 34.3 % (21.0-51.0); MEAN CORPUSCULAR HEMOGLOBIN 29.6 pg (27.0-33.0); MEAN CORPUSCULAR HGB CONC 33.7 g/dL (32.0-36.0); MEAN CORPUSCULAR VOLUME 87.8 fL (79-99); MONOCYTES % (AUTO) 7.6 % (3.0-13.0); NEUTROPHILS % (AUTO) 55.2 % (40.0-77.0); PLATELET COUNT (AUTO) 185 K/uL (130-400); RED BLOOD CELL COUNT(AUTO) 5.23 MIL/uL (4.50-6.20); RED CELL DISTRIBUTION WIDTH 14.3 % (11.0-15.5)
[2018-09-04 11:42] LABS: BILIRUBIN,TOTAL 0.3 mg/dL (0.2-1.0); CREATININE 0.8 mg/dL (0.5-1.5); POTASSIUM 3.8 mmol/L (3.5-5.1); TOTAL PROTEIN, SERUM 7.3 g/dL (6.0-8.3)
== END | disposition home or self-care (01) ==
LOC: LAB 10:58
PROVIDERS: ATTEND Internal Medicine
DX: Z12.5 Encounter for screening for malignant neoplasm of prostate (principal); E78.2 Mixed hyperlipidemia; I10 Essential (primary) hypertension
CPT/HCPCS: 36415; 80053; 80061; 84153; 84443; 85025

== ENCOUNTER → 2018-12-05 | Outpatient (CLI) | payer BC, OTHER ==
[~2018-12-05] MED LIST changes: -ROSU40TA20 PO; +ROSU40TA21 PO
[2018-12-05 15:12] LABS: BASOPHILS % (AUTO) 0.9 % (0.0-5.0); EOSINOPHILS % (AUTO) 1.2 % (0.0-8.0); HEMATOCRIT 45.7 % (42-54); LYMPHOCYTES % (AUTO) 32.5 % (21.0-51.0); MEAN CORPUSCULAR HEMOGLOBIN 30.2 pg (27.0-33.0); MEAN CORPUSCULAR HGB CONC 34.2 g/dL (32.0-36.0); MEAN CORPUSCULAR VOLUME 88.3 fL (79-99); MONOCYTES % (AUTO) 8.1 % (3.0-13.0); NEUTROPHILS % (AUTO) 57.3 % (40.0-77.0); PLATELET COUNT (AUTO) 160 K/uL (130-400); RED BLOOD CELL COUNT(AUTO) 5.18 MIL/uL (4.50-6.20); RED CELL DISTRIBUTION WIDTH 14.1 % (11.0-15.5); WHITE BLOOD COUNT (AUTO) 8.4 K/uL (4.8-10.8)
[2018-12-05 15:23] LABS: ALBUMIN 4.3 g/dL (3.5-5.0); BILIRUBIN,TOTAL 0.6 mg/dL (0.2-1.0); TOTAL PROTEIN, SERUM 7.5 g/dL (6.0-8.3)
== END | disposition home or self-care (01) ==
LOC: RAH 14:37
PROVIDERS: ATTEND Podiatrist Foot & Ankle Surgery
DX: M19.071 Primary osteoarthritis, right ankle and foot (principal); B35.1 Tinea unguium
CPT/HCPCS: 36415; 73630; 80053; 85025

== ENCOUNTER → 2018-12-13 | Outpatient (CLI) | payer BC ==
[2018-12-13 09:12] LABS: BASOPHILS % (AUTO) 0.5 % (0.0-5.0); EOSINOPHILS % (AUTO) 1.2 % (0.0-8.0); HEMATOCRIT 45.9 % (42-54); LYMPHOCYTES % (AUTO) 34.3 % (21.0-51.0); MEAN CORPUSCULAR HEMOGLOBIN 30.4 pg (27.0-33.0); MEAN CORPUSCULAR HGB CONC 33.7 g/dL (32.0-36.0); MEAN CORPUSCULAR VOLUME 90.2 fL (79-99); MONOCYTES % (AUTO) 7.5 % (3.0-13.0); NEUTROPHILS % (AUTO) 56.5 % (40.0-77.0); NUCLEATED RED BLOOD CELLS 0.1 % (0.0-0.19); PLATELET COUNT (AUTO) 138 K/uL (130-400); RED BLOOD CELL COUNT(AUTO) 5.09 MIL/uL (4.50-6.20); RED CELL DISTRIBUTION WIDTH 13.8 % (11.0-15.5); WHITE BLOOD COUNT (AUTO) 6.9 K/uL (4.8-10.8)
[2018-12-13 09:28] LABS: CHOLESTEROL 133 mg/dL (<200); HDL CHOLESTEROL 52 mg/dL (29-71); LDL DIRECT 61 mg/dL (0-99); TRIGLYCERIDES 70 mg/dL (30-200)
== END | disposition home or self-care (01) ==
LOC: RAH 08:33
PROVIDERS: ATTEND Internal Medicine
DX: Z12.5 Encounter for screening for malignant neoplasm of prostate (principal); E78.2 Mixed hyperlipidemia; I10 Essential (primary) hypertension
CPT/HCPCS: 36415; 80061; 84153; 85025

== ENCOUNTER → 2019-08-24 | Outpatient (CLI) | payer BC ==
[~2019-08-24] MED LIST changes: -ASPI-555 PO; +ASPI-556 PO
[2019-08-24 09:18] LABS: BASOPHILS % (AUTO) 0.6 % (0.0-5.0); EOSINOPHILS % (AUTO) 1.4 % (0.0-8.0); HEMATOCRIT 49.2 % (42-54); LYMPHOCYTES % (AUTO) 36.6 % (21.0-51.0); MEAN CORPUSCULAR HEMOGLOBIN 29.6 pg (27.0-33.0); MEAN CORPUSCULAR HGB CONC 33.5 g/dL (32.0-36.0); MEAN CORPUSCULAR VOLUME 88.3 fL (79-99); MONOCYTES % (AUTO) 8.5 % (3.0-13.0); NEUTROPHILS % (AUTO) 52.8 % (40.0-77.0); PLATELET COUNT (AUTO) 147 K/uL (130-400); RED BLOOD CELL COUNT(AUTO) 5.57 MIL/uL (4.50-6.20); RED CELL DISTRIBUTION WIDTH 12.7 % (11.0-15.5)
[2019-08-24 09:36] LABS: ALBUMIN 4.6 g/dL (3.5-5.0); BILIRUBIN,TOTAL 0.6 mg/dL (0.2-1.0); CREATININE 0.9 mg/dL (0.5-1.5); POTASSIUM 3.7 mmol/L (3.5-5.1); TOTAL PROTEIN, SERUM 7.9 g/dL (6.0-8.3)
== END | disposition home or self-care (01) ==
LOC: LAB 08:16
PROVIDERS: ATTEND Internal Medicine
DX: Z12.5 Encounter for screening for malignant neoplasm of prostate (principal); I13.10 Hypertensive heart and chronic kidney disease without heart failure, with stage 1 through stage 4 chronic kidney disease, or unspecified chronic kidney disease; E78.2 Mixed hyperlipidemia
CPT/HCPCS: 36415; 80053; 80061; 82043; 82570; 84153; 84154; 85025

== ENCOUNTER → 2019-09-24 | Outpatient (CLI) | payer BC | END | disposition home or self-care (01) | LOC: LAB 14:53 | PROVIDERS: ATTEND Internal Medicine | DX: I25.10 Atherosclerotic heart disease of native coronary artery without angina pectoris (principal) ==

== ENCOUNTER → 2023-03-01 | Outpatient (CLI) | payer MEDICARE ==
[~2023-03-01] MED LIST changes: +CLOP-31 PO; -CLOP75TA14 PO
== END | disposition home or self-care (01) ==
LOC: SHCH 07:31
PROVIDERS: ATTEND Internal Medicine Cardiovascular Disease
DX: I87.2 Venous insufficiency (chronic) (peripheral) (principal); I87.1 Compression of vein; I73.9 Peripheral vascular disease, unspecified
CPT/HCPCS: 93925; 93970

== ENCOUNTER → 2024-09-27 | Outpatient (CLI) | payer MEDICARE ==
[~2024-09-27] MED LIST changes: -ROSU40TA21 PO; +ROSU40TA88 PO
--- NOTE | 2024-09-28 07:24 | HMCIMG ---
EXAMINATION: ULTRASOUND OF THE ABDOMEN WITH COLOR DOPPLER. CLINICAL HISTORY: Abnormal findings of blood chemistry. COMPARISON: CTA aorta dated 05/25/2023. TECHNIQUE: Real-time grayscale ultrasound images of the abdomen. In addition, color Doppler is medically necessary to perform in order to evaluate vascularity and blood flow. FINDINGS: Liver: Normal in caliber, the right hepatic lobe measures 14.8 cm in the craniocaudal dimension. There is increased echogenicity of the hepatic parenchyma. There is no focal hepatic abnormality or intrahepatic biliary ductal dilatation. There is normal spectral Doppler of the main portal vein. Gallbladder: Within normal limits with normal wall thickness (0.3 cm). No hyperemia or pericholecystic free fluid. There is no cholelithiasis. Common bile duct is normal in caliber, measuring 0.3 cm. Spleen is normal in caliber and measures 9.6 x 5.2 x 4.1 cm in craniocaudal, AP and transverse dimensions respectively. No focal lesions. Pancreas: Obscured by overlying bowel gas. The kidneys are normal in caliber, the right kidney measures 10.9 x 6.4 x 4.4 cm and the left kidney measures 10.6 x 5.6 x 5.2 cm in craniocaudal, AP, and transverse dimensions respectively. There is normal renal cortical thickness, and cortical echogenicity. There is no renal calculus or hydronephrosis. Aorta shows atherosclerotic changes. Visualized aspects of the inferior vena cava are unremarkable. IMPRESSION: Hepatic steatosis. Previously demonstrated calcified splenic granulomas are not visualized. /[place]
== END | disposition home or self-care (01) ==
LOC: RAH 09:29
PROVIDERS: ATTEND Internal Medicine
DX: K76.0 Fatty (change of) liver, not elsewhere classified (principal); R79.89 Other specified abnormal findings of blood chemistry
CPT/HCPCS: 76700